=== PATIENT | male | born 1960 | race Two or more races ===

== ENCOUNTER 2022-07-08 07:51 | Emergency (ER) | payer MEDICAID ==
[~2022-07-08] VITALS: Ht 182.9 cm; Wt 83.9 kg
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
--- NOTE | 2022-07-08 08:10 | NUR ---
DR BOWSER AT BEDSIDE FOR EVAL
--- NOTE | 2022-07-08 08:20 | NUR ---
REPAIRER HELPER AT BEDSIDE FOR XRAY
[2022-07-08] MEDS ORDERED: IBUP-1953 PO (08:47)
--- NOTE | 2022-07-08 08:59 | NUR ---
Patient discharged to home in stable condition. Written and verbal after care instructions given. Patient verbalizes understanding of instruction. 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
[2022-07-08 09:01] VITALS: BP 124/68
== END 2022-07-08 09:04 | disposition home or self-care (01) ==
LOC: ER 08:01
DX: S63.501A Unspecified sprain of right wrist, initial encounter (principal); V30 Occupant of three-wheeled motor vehicle injured in collision with pedestrian or animal; Y93.89 Activity, other specified; Y92.89 Other specified places as the place of occurrence of the external cause; Y99.8 Other external cause status
CPT/HCPCS: 73110